=== PATIENT | male | born 1990 | race Caucasian/White ===

== ENCOUNTER 2017-02-22 11:06 | Emergency (ER) | payer OTHER ==
[~2017-02-22] VITALS: Ht 177.8 cm; Wt 83.9 kg
[2017-02-22 11:30] VITALS: BP 106/61
--- NOTE | 2017-02-22 11:35 | NUR ---
Patient ambulated to bed 7. RN evaluating patient at bedside.
--- NOTE | 2017-02-22 11:36 | NUR ---
26/M BIB MOTHER C/O RIGHT 5TH FINGER PAIN. PT STATES HE INJURED HIS FINGER 1 DAY AGO PLAYING BALL. PT DENIES ANY OTHER MEDICAL HX. DENIES N/V/D; SKIN IS PINK/WARM/DRY; AAOX4 WITH EVEN AND STEADY GAIT; LUNGS CLEAR BL; HR EVEN AND REGULAR; PATIENT STATES PAIN OF 4/10 AT THIS TIME; VSS; PATIENT POSITIONED FOR COMFORT; HOB ELEVATED; BEDRAILS UP X2; BED DOWN. ER MD MADE AWARE OF PT STATUS.
[2017-02-22] MEDS ORDERED: IBUPROFEN 800 MG TAB PO ONE (11:40)
[2017-02-22] MEDS ORDERED: HYDROcodone/APAP 5/325 MG 1 TAB TAB PO ONE (11:40)
[2017-02-22 12:42] VITALS: BP 106/61
--- NOTE | 2017-02-22 12:43 | NUR ---
Patient discharged with v/s stable. Written and verbal after care instructions given and explained. Patient alert, oriented and verbalized understanding of instructions. Ambulatory with steady gait. All questions addressed prior to discharge. ID band removed. Patient advised to follow up with PMD. Rx of MOTRIN 600 MG QID given. Patient educated on indication of medication including possible reaction and side effects. Opportunity to ask questions provided and answered.
== END 2017-02-22 12:43 | disposition home or self-care (01) ==
LOC: MED 11:06
DX: S62.606A Fracture of unspecified phalanx of right little finger, initial encounter for closed fracture (principal); M20.011 Mallet finger of right finger(s); X58.XXXA Exposure to other specified factors, initial encounter; Y93.61 Activity, american tackle football; Y92.89 Other specified places as the place of occurrence of the external cause; Y99.8 Other external cause status
CPT/HCPCS: 73140; 99284